=== PATIENT | female | born 1985 | race African-American/Black ===

== ENCOUNTER 2024-09-13 20:28 | Emergency (ER) | payer SELFPAY ==
[2024-09-13 20:41] VITALS: BP 124/74; PULSE 73; RESP 18; TEMP 98.1; BMI 32.3
[2024-09-13] MEDS ORDERED: FLUORESCEIN NA 1 EA STRIP ONE (21:24)
[2024-09-13] MEDS ORDERED: TETRACAINE 0.5% OPHTH SOLN 2 ML BOTTLE ONE (21:24)
[2024-09-13] MEDS: TETRACAINE 0.5% OPHTH SOLN 2 ML BOTTLE OD ONE (21:32)
[2024-09-13] MEDS: FLUORESCEIN NA 1 EA STRIP OD ONE (21:32)
== END 2024-09-13 22:24 | disposition home or self-care (01) ==
LOC: JER 20:28
DX: H11.31 Conjunctival hemorrhage, right eye (principal); N93.9 Abnormal uterine and vaginal bleeding, unspecified; G89.18 Other acute postprocedural pain; R10.9 Unspecified abdominal pain; H57.11 Ocular pain, right eye
CPT/HCPCS: 99283-25